=== PATIENT | male | born 1985 | race Caucasian/White ===

== ENCOUNTER 2025-03-10 10:01 | Outpatient (CLI) | payer OTHER, SELFPAY ==
--- NOTE | ~2025-03-10 | MR_ITS ---
EXAMINATION: MR lumbar spine wo con DATE: 03/10/2025 10:34 INDICATION: Lumbar radiculopathy TECHNIQUE: Magnetic resonance imaging (MRI) of the lumbar spine was performed without intravenous contrast. Sequences included sagittal T2-weighted FSE, sagittal T2-weighted FS FSE, sagittal T1-weighted FSE, and axial T2-weighted FSE. COMPARISON: MRI dated 01/13/2019 FINDINGS: 6 mm retrolisthesis L5 on S1. Chronic likely physiologic mild anterior wedging at T12 and minimal anterior wedging at L1 and L2. There are several unchanged small Schmorl's nodes in the lower thoracic and upper lumbar spine. There is marrow edema in the L5 vertebral body surrounding a somewhat wedge-shaped region of decreased signal at the anterior vertebral body with new minimal convexity to the anterior margin of the vertebral body in the sagittal imaging which suggests a possible subacute compression fracture with negligible vertebral body height loss. Progression of severe disc height loss at L5-S1 with associated fibrovascular degenerative endplate changes. There is also been progression of now mild to moderate disc height loss at L4-L5 with additional fibrovascular degenerative endplate change along the inferior endplate of L4. Moderate disc height loss at T11-T12. Unchanged T1 hyperintense hemangioma posteriorly at L1. The conus medullaris terminates at L1-L2. There is normal signal in the caudal spinal cord. Paravertebral soft tissues are unremarkable. The following disc levels are specifically discussed: T12-L1: The disc does not extend beyond the endplate margin. There is mild to moderate bilateral facet joint osteoarthritis. There is no neural foraminal stenosis. There is no central canal stenosis. L1-L2: Disc is mildly bulging. There is mild bilateral facet joint osteoarthritis. There is mild bilateral neural foraminal stenosis. There is mild central canal stenosis. L2-L3: Disc is mildly bulging. There is mild bilateral facet joint osteoarthritis. There is mild bilateral neural foraminal stenosis. There is mild central canal stenosis. L3-L4: Disc is mildly bulging. There is mild bilateral facet joint osteoarthritis. There is mild bilateral neural foraminal stenosis. There is mild central canal stenosis. L4-L5: Disc is bulging with superimposed annular fissure and left paracentral disc extrusion with disc material extending up to 4 mm caudal to the level of the superior endplate of L5. There is mild bilateral facet joint osteoarthritis. There is moderate bilateral neural foraminal stenosis. There is mild central canal stenosis along with mild narrowing of the lateral recesses, left greater than right. L5-S1: Annular fissure with broad-based disc extrusion extending from foraminal zone to foraminal zone with disc material extending up to maximal of 7 mm caudal to the level of the superior endplate of S1 at the left lateral recess. There is mild bilateral facet joint osteoarthritis. There is moderate bilateral neural foraminal stenosis. There is mild central canal stenosis. IMPRESSION: 1. Increased marrow signal in the L5 vertebral body surrounding a wedge-shaped region of decreased signal at the anterior aspect of the body which now demonstrates a subtly convex anterior wall suggestive of a likely subacute compression fracture with negligible anterior vertebral body height loss. 2. Interval progression of now moderate to severe lower lumbar predominant spondylosis. Reviewed, dictated and finalized at location A. FINISHING SUPERVISOR IMPRESSION: 1. Increased marrow signal in the L5 vertebral body surrounding a wedge-shaped region of decreased signal at the anterior aspect of the body which now demonst rates a subtly convex anterior wall suggestive of a likely subacute compression fracture with negligible anterior vertebral body height loss. 2. Interval progression of now moderate to severe lower lumbar predominant spon dylosis.
--- OUTSIDE RECORDS SUMMARY | 2025-03-10 11:35 | XMS_ITS | Clinical Summary ---
Author Organization [facility] Address [address] [place] [id number] Care Team Providers Care Tank Furnace Operator Name Role Phone Non-Staff, Provider Primary Care Provider Unavai lable Allergies Active Allergy Reactions Criticality Noted Date Comments Prochlorperazine Anaphylaxis High 05/09/2017 Medications buprenorphine-na loxone 8-2 MG FILM 10/28/2019 Active meloxicam 15 MG tablet Take 15 mg by mouth daily. 09/29/2020 Active Active Problems Problem Noted Date Diagnosed Date Suicidal ideation 05/10/2017 Suicidal intent 05/10/2017 Heroin addiction 05/10/2017 Alcohol abuse 05/10/2017 History of major depression 05/10/2017 Substance induced mood disorder 05/10/2017 Nicotine dependence 05/10/2017 Family History Medical History Relation Comments Cancer Father Diabetes Father Hypertension Father Hypertension Maternal Grandmother Hypertension Mother Relation Status Comments Father Maternal Grandmother Mother Alive Social History Tobacco Use Types Packs/Day Years Used Date Smoking Tobacco: Every Day Cigarettes Smokeless Tobacco: Never Tobacco Cessation:Ready to Q uit: Not Asked; Counseling Given: Not Answered Alcohol Use Standard Drinks/Week Comments No 0 (1 standard drink = 0.6 oz pur e alcohol) Sex and Gender Information Value Date Recorded Sex Assigned at Male 05/19/2024 8:34 PM DEICER REPAIRER PNEUMATIC Legal Sex Male 4:39 PM CDT Gender Identity Not on file Sexual Orientation Not on file Last Filed Vital Signs Vital Sign Reading Time Taken Comments Blood Pressure 124/80 05/19/2024 8:02 PM DEICER REPAIRER PNEUMATIC Pulse 68 05/19/2024 8:02 PM DEICER REPAIRER PNEUMATIC Temperature 36.9 C (98.5 F) 05/19/2024 8:02 PM DEICER REPAIRER PNEUMATIC Respiratory Rate 20 05/19/2024 8:02 PM DEICER REPAIRER PNEUMATIC Oxygen Saturation 100% 05/19/2024 8:02 PM DEICER REPAIRER PNEUMATIC Inhaled Oxygen Concentration - - Weight 70.6 kg (155 lb 10.3 oz) 05/19/2024 8:02 PM DEICER REPAIRER PNEUMATIC Height 180.3 cm (5' 11) 05/19/2024 8:02 PM DEICER REPAIRER PNEUMATIC Body Mass Index 21.71 05/19/2024 8:02 PM DEICER REPAIRER PNEUMATIC Plan of Treatment Health Maintenance Due Date Last Done Comments Annual Physical 11/16/1987 Hepatitis C 2002 DTaP, Tdap and Td Vaccines (1 - Tdap) 11/16/2003 11/06/1990, 07/10/1987, 06/18/1985, Additional history exists Hepatitis B Vaccines (1 of 3 - 19+ 3-dose series) 11/16/2003 Pneumococcal Vaccine: Pediatrics (0 to 5 Years) and At-Risk Patients (6 to 49 Years) (1 of 2 - PCV) 11/16/2003 HPV Vaccines (1 - 3-dose SCDM series) 11/16/2011 COVID-19 Vaccine (1 - season) 2024 Influenza Adult (#1) 2025 Hepatitis A Vaccines Aged Out No long er eligible based on patient's age to complete this topic Meningococcal B Vaccine Aged Out No l onger eligible based on patient's age to complete this topic Meningococcal Vaccine Aged Out No john paul lc eligible based on patient's age to complete this topic RSV Immunizations Under 20 Months Aged Out No longer eligible based on patient's age to complete this topic Insurance [employer] Advance Directives * Full Code (Latest Code Status on File) Date Activated Date Inactivated Comments 05/10/2017 2:15 AM 05/10/2017 9:42 PM Care Teams Tank Furnace Operator Relationship Specialty Start Date End Date Non-Staff, Provider PCP - General UNKNOWN PHYSICIAN SPECIALTY 05/19/24
--- OUTSIDE RECORDS SUMMARY | 2025-03-10 11:35 | XMS_ITS | Clinical Summary ---
Author Organization [facility] Address [address] [place] [id number] Care Team Providers Care Supervisor Shaving And Splitting Name Role Phone Catina Le MD Primary Care Provider Allergies Active Allergy Reactions Criticality Noted Date Comments Prochlorperazine Medications hydrOXYzine (ATARAX) 25 mg tablet Take 1 tablet (25 mg total) by mouth every 6 (six) hours as needed for anxiety 20 tablet 05/21/2021 Active Active Problems Problem Noted Date Diagnosed Date Chronic hepatitis C virus infection 11/14/2013 Family History Medical History Relation Name Comments Diabetes Father Family history of diabetes mellitus - (Added by TW Conv) Relation Name Status Comments Father Social History Tobacco Use Types Packs/Day Years Used Date Smoking Tobacco: Every Day Personal Safety Answer Date Recorded Getting School Help Needed Not on file 06/11 Sex and Gender Information Value Date Recorded Sex Assigned at Not on file Legal Sex Male 8:19 PM BRISKET PULLER Gender Identity Not on file Sexual Orientation Not on file Last Filed Vital Signs Vital Sign Reading Time Taken Comments Blood Pressure 133/82 05/21/2021 9:13 PM BRISKET PULLER Pulse 71 05/21/2021 9:13 PM BRISKET PULLER Temperature 36.9 C (98.5 F) 05/21/2021 6:05 PM BRISKET PULLER Respiratory Rate 16 05/21/2021 9:13 PM BRISKET PULLER Oxygen Saturation 99% 05/21/2021 9:13 PM BRISKET PULLER Inhaled Oxygen Concentration - - Weight 81.6 kg (180 lb) 05/21/2021 5:55 PM BRISKET PULLER Height 180.3 cm (5' 11) 05/21/2021 5:55 PM BRISKET PULLER Body Mass Index 25.1 05/21/2021 5:55 PM BRISKET PULLER Plan of Treatment Not on file Insurance [address] [address] [place] [address] Care Teams Supervisor Shaving And Splitting Relationship Specialty Start Date End Date Catina Le MD [address] [place] [address] PCP - General Internal Medicine 05/21/21
== END 2025-03-10 10:02 | disposition home or self-care (01) ==
PROVIDERS: PCP Nurse Practitioner Family; Visit Provider Nurse Practitioner Adult Health
DX: M43.06 Spondylolysis, lumbar region (principal); R29.890 Loss of height; V89.2XXA Person injured in unspecified motor-vehicle accident, traffic, initial encounter
CPT/HCPCS: 72148